=== PATIENT | male | born 1990 | race Caucasian/White ===

== ENCOUNTER 2022-01-08 22:20 | Emergency (ER) | payer MEDICAID ==
[~2022-01-08] VITALS: Ht 188 cm; Wt 106.6 kg
[2022-01-08 23:01] VITALS: BP_SYST 116
--- NOTE | 2022-01-08 23:35 | NUR ---
Patient triaged and placed in waiting room. VSS and patient appears in no acute distress at this time. MD Hanson notified of need for MSE.
--- NOTE | 2022-01-08 23:46 | NUR ---
Pt taken to CT for imaging.
--- NOTE | 2022-01-09 00:57 | NUR ---
SEEMA Phillips examining patient.
[2022-01-09] MEDS ORDERED: DIPHTH,PERTUSS(ACELL),TET VAC 0.5 ML VIAL (Tdap) I.M. ONE (01:00)
[2022-01-09] MEDS ORDERED: AMPICILLIN SODIUM/SULBACTAM NA 3 GM in NS 100 ML IV ONE (01:00)
[2022-01-09] MEDS ORDERED: AMPICILLIN SODIUM/SULBACTAM NA 3 GM VIAL ONE (01:26)
[2022-01-09] MEDS ORDERED: LIDOCAINE 1%, 20 ML MDV 20 ML ONE (01:35)
[2022-01-09] MEDS ORDERED: SULF1TAB48 PO (02:55)
--- NOTE | 2022-01-09 03:25 | NUR ---
Patient has a laceration to tip of nose. Dr. Hanson applied 2 sutures using sterile technique. Edges well approximated. Site cleansed with NS. Dressing applied to site. No bleeding noted. Pt tolerated well.
--- NOTE | 2022-01-09 03:52 | NUR ---
Patient given written and verbal discharge instructions and verbalizes understanding. ER MD Hanson discussed with patient the results and treatment provided. Patient in stable condition. ID arm band removed. IV catheter removed intact and dressing applied, no active bleeding. Rx of Bactrim Ds sent to pharmacy of choice. Patient educated on pain management and to follow up with PMD. Pain Scale 0/10. Opportunity for questions provided and answered. Medication side effect fact sheet provided.
[2022-01-09 03:53] VITALS: BP_SYST 121
== END 2022-01-09 03:53 | disposition home or self-care (01) ==
LOC: SED 22:20
DX: S01.21XA Laceration without foreign body of nose, initial encounter (principal); Z79.899 Other long term (current) drug therapy; V86.55XA Driver of 3- or 4- wheeled all-terrain vehicle (ATV) injured in nontraffic accident, initial encounter; X58.XXXA Exposure to other specified factors, initial encounter; Y93.89 Activity, other specified; Y92.838 Other recreation area as the place of occurrence of the external cause; Y99.8 Other external cause status
CPT/HCPCS: 99284; 70450; 70486; 76376; 12011; 96365; 90715; 90471; J0295; J2001

== ENCOUNTER 2022-09-20 15:47 | Emergency (ER) | payer OTHER, MEDICAID ==
[~2022-09-20] VITALS: Ht 157.5 cm; Wt 104.3 kg
[~2022-09-20 15:47] MED LIST: SULF1TAB48 PO
[2022-09-20 15:49] VITALS: BP_SYST 119
[2022-09-20] MEDS ORDERED: IBUPROFEN 800 MG TABLET PO ONE (16:15)
[2022-09-20] MEDS ORDERED: IBUP800T54 PO (16:38)
[2022-09-20] MEDS ORDERED: SOM350 PO (16:38)
[2022-09-20 17:09] VITALS: BP_SYST 130
== END 2022-09-20 16:46 | disposition home or self-care (01) ==
LOC: SED 15:47
DX: S39.012A Strain of muscle, fascia and tendon of lower back, initial encounter (principal); S43.401A Unspecified sprain of right shoulder joint, initial encounter; Z79.899 Other long term (current) drug therapy; V89.2XXA Person injured in unspecified motor-vehicle accident, traffic, initial encounter; Y93.89 Activity, other specified; Y92.89 Other specified places as the place of occurrence of the external cause; Y99.8 Other external cause status
CPT/HCPCS: 72100-TC; 73030; 99284